=== PATIENT | female | born 1975 | race Caucasian/White ===

== ENCOUNTER 2024-11-13 11:28 | Day surgery (SDC) | payer MEDICARE, MEDICAID, SELFPAY ==
[2024-11-13] VITALS (9 sets, daily range): BP systolic 110–149; BP diastolic 75–94; PULSE 68–89; RESP 18–20; TEMP 37; O2SAT 95–98; BMI 39.7
--- NOTE | 2024-11-13 07:19 | IR_ITS ---
APPROVED REPORT Patient Location: Outpatient PROCEDURES 1. Left heart catheterization 2. Selective coronary arteriography 3. Left ventriculography 4. Right heart catheterization INDICATION 1. Angina pectoris, 2. Coronary arteries, 3. Congestive heart failure SCAI INDICATION Patient 49-year-old white female with known coronary artery disease who presented with increasing progressive pressure and tightness in the chest and shortness of breath. Progressive cardiac symptoms. Progressive angina. Maximal medical therapy. Also with increasing shortness of breath. Secondary to this referred for left and right heart catheterization Informed consent was obtained prior to the procedure. COMPLICATIONS NONE Estimated Blood Loss: LESS THAN 10 ML TECHNIQUE After informed consent was obtained patient was brought to the [facility] where she was draped and prepped for right radial access. Catheters you for the procedure were a Ulis right #4, Luis left #4. 5 [place] system. I also used a [place]-Garfield catheter with a 7 [place] sheath placed in the right common femoral vein. Access via the Salinger technique. ANGIOGRAPHIC RESULTS The left main artery Angiographically normal The left anterior descending artery Had a long area of stents throughout the proximal/mid vessel. Smooth 20% diffuse in-stent pending. Crossed a couple of small diagonal branches but normal flow into those branches as well and excellent flow into the mid and distal left anterior descending. Mild calcification throughout the vessel The circumflex artery Moderate in size. There was a large first obtuse marginal branch which had a long stent in the proximal/mid vessel. Smooth 20 to 30% in-stent thinning in the midportion of that stent but excellent flow into the distal vessel. True circumflex with smooth diffuse 20% mid stenosis. Mild calcification The right coronary artery Large and dominant. Right coronary artery had mild to moderate calcification throughout its course. Smooth 20 to 30% proximal stenosis and smooth eccentric 20 to 30% mid stenosis with normal flow into the distal vessel and normal bifurcation with tapering moderate size posterior descending artery and posterior lateral branch with moderate luminal irregularities The MANZANARES ventriculogram reveals Normal left ventricular systolic function with an ejection fraction of 60%. No wall motion abnormalities. No gradient on pullback of the catheter The left ventricular end-diastolic pressure 12 Right heart catheterization was performed as well. Right atrial pressure wound was 14 with a right ventricular pressure of 35/14 and a pulmonary artery pressure of 35/18. Pulmonary capillary wedge pressure 13. Normal cardiac output at 4.75. Normal right atrial and pulmonary artery saturations of 63% Right, retrograde femoral arteriogram performed. Sheath placed in the right common femoral artery. Angio-Seal device deployed without difficulty. Also placed a Mynx device in the right common femoral vein IMPRESSION 1. Mild diffuse coronary artery disease 2. Mild to moderate diffuse coronary calcification 3. Long area of stents noted throughout the proximal and mid left anterior descending which were patent with mild smooth in-stent thinning 4. Long patent stent in the proximal/mid large first obtuse marginal branch of the circumflex with mild smooth in-stent thinning 5. Normal left ventricular systolic function 6. Normal left ventricular end-diastolic pressure and pulmonary capillary wedge pressure 7. Normal pulmonary artery pressure 8. Normal pulmonary artery saturation and cardiac output 9. Successful placement of an Angio-Seal device in the right common femoral artery 10. Successful placement of a Mynx device in the right common femoral vein PLAN 1. At this time patient has full revascularization. Continue aggressive risk factor modification. Continue aggressive medical therapy. Continue antiplatelets. Follow-up in cardiology clinic in 1 to 2 weeks for further evaluation and treatment. The pressures in the heart look good at this time. Continue to maximize therapy Electronically signed by : Garcia Hook MD 11/13/2024 14:23:01
[2024-11-13 12:05] LABS: Basophils % 0.5 % (0.1-2.0); Eosinophils # 0.1 K/mm3 (0.0-0.4); Eosinophils % 1.6 % (0.1-12.0); Hematocrit 40.3 % (37.0-47.0); Hemoglobin 13.2 g/dL (12.2-16.2); Lymphocytes # 2.6 K/mm3 (0.7-4.5); Lymphocytes % 34.5 % (10-50); Mean Corpuscular HGB Conc 32.8 g/dL (31.8-35.4); Mean Corpuscular Hemoglobin 28.5 pg (27.0-31.2); Mean Platelet Volume 8.4 fl (7.4-10.4); Monocytes # 0.8 K/mm3 (0.1-1.0); Monocytes % 9.9 % (1.7-9.3); Neutrophils # 4.1 K/mm3 (1.8-7.8); Neutrophils % 53.4 % (37.0-80.0); Platelet Count 386 K/mm3 (142-424); Red Blood Count 4.63 M/mm3 (4.20-5.40); Red Cell Distribution Width 13.1 % (11.5-17.5); White Blood Count 7.6 K/mm3 (4.8-10.8)
[2024-11-13 12:17] LABS: Anion Gap 11.3 mEq/L (5-15); Blood Urea Nitrogen 20 mg/dl (7-17); Calcium 10.2 mg/dl (8.4-10.2); Carbon Dioxide 31 mmol/L (22.0-30.0); Chloride 102 mmol/L (98-107); Creatinine Clearance Estimated 124 mL/min (50-200); Estimated Glomerular Filt Rate 59 ml/min (>60); GFR (African American) 71 ML/MIN (>60); Glucose 86 mg/dl (74-100); Potassium 4.3 mmoL/L (3.5-5.1); Sodium 140 mmol/L (136-145)
[2024-11-13] MEDS: LIDOCAINE 1% 10ML MDV 20 ML IJ (14:06)
[2024-11-13] MEDS: diphenhydrAMINE 50MG/ML VIAL 50 MG IV (14:07)
[2024-11-13] MEDS: HEPARIN 1,000 UNITS/500ML NS (CATH LAB) 3000 UNIT IV (14:07)
[2024-11-13] MEDS: 0.9 % SODIUM CHLORIDE 500 ML 25 ML IV (14:08)
[2024-11-13] MEDS: MIDAZOLAM HCL 1MG/ML 5ML VIAL 1 MG IV (14:11)
[2024-11-13] MEDS: FENTANYL 100MCG/2ML VIAL 50 MCG IV (14:12)
[2024-11-13] MEDS: IOPAMIDOL-370 (76%);100ML BOTTLE 50 ML IV (14:46)
[2024-11-13 14:47] LABS: CATHL Arterial O2 SAT 63.4 % (90-100); CATHL Venous O2 SAT 63.3 % (75-80)
== END 2024-11-13 16:18 | disposition home or self-care (01) ==
LOC: CATHLAB 11:31
PROVIDERS: Internal Medicine; Visit Provider Internal Medicine Cardiovascular Disease
DX: I25.118 Atherosclerotic heart disease of native coronary artery with other forms of angina pectoris (principal); I11.0 Hypertensive heart disease with heart failure; E78.5 Hyperlipidemia, unspecified; E55.9 Vitamin D deficiency, unspecified; I50.9 Heart failure, unspecified; Z79.899 Other long term (current) drug therapy; Z88.0 Allergy status to penicillin; Z88.3 Allergy status to other anti-infective agents; Z91.013 Allergy to seafood; Z88.8 Allergy status to other drugs, medicaments and biological substances
CPT/HCPCS: 36415; 80048; 82810; 85025; 93460; 99152; 99153; C1725; C1760; C1769; C1894; J1200; J1644; J3010; Q9967